=== PATIENT | male | born 1980 | race Caucasian/White ===

== ENCOUNTER 2018-04-17 08:52 | Emergency (ER) | payer OTHER ==
[~2018-04-17] VITALS: Wt 72.5 kg
[2018-04-17 09:56] LABS: EOS # 0.1 (0.04-0.40); EOS % 1.8 % (0.0-4.0); HEMATOCRIT 39.5 % (42.0-52.0); HEMOGLOBIN 13.8 g/dL (13.5-18.0); LYMPH# 0.9 (1.50-4.00); MEAN CELL VOLUME 90 fl (78-100); MEAN CORPUSCULAR HEMOGLOBIN 32 pg (27-31); MEAN CORPUSCULAR HGB CONC 35 g/dL (33-37); MEAN PLATELET VOLUME 11.7 fl (7.4-10.4); MONO # 0.4 (0.20-0.80); NEU # 5.6 (1.40-6.50); PLATELET COUNT 153 K/mm3 (130-400); RED BLOOD COUNT 4.37 M/mm3 (4.20-5.60); WHITE BLOOD COUNT 7.1 K/mm3 (4.8-10.8)
[2018-04-17 10:09] LABS: ALBUMIN 4.1 g/dL (3.5-5.0); CALCIUM 9.2 mg/dL (8.4-10.2); POTASSIUM 4.2 mmol/L (3.6-5.0); TOTAL BILIRUBIN 0.7 mg/dL (0.2-1.3); TOTAL PROTEIN 6.5 g/dL (6.3-8.2)
[2018-04-17 11:37] LABS: URINE APPEARANCE CLEAR; URINE BILIRUBIN NEGATIVE (NEGATIVE); URINE BLOOD NEGATIVE (NEGATIVE); URINE COLOR YELLOW; URINE GLUCOSE NEGATIVE (NEGATIVE); URINE KETONE NEGATIVE (NEGATIVE); URINE LEUKOCYTE ESTERASE NEGATIVE (NEGATIVE); URINE MUCUS PRESENT (NOT PRESENT); URINE NITRATE NEGATIVE (NEGATIVE); URINE PROTEIN(semi-quant) 1+ mg/dL (NEGATIVE); URINE UROBILINOGEN NORMAL (NORMAL)
[2018-04-17] MEDS ORDERED: AUGMENTIN 875-1 EAC1 PO (11:48)
[2018-04-17] MEDS ORDERED: NORCO 325 MG-51 TA1 PO (11:48)
[2018-04-17 12:09] VITALS: BP 134/85
== END 2018-04-17 11:52 | disposition home or self-care (01) ==
LOC: ED 08:52
PROVIDERS: Nurse Practitioner
DX: J01.90 Acute sinusitis, unspecified (principal); R55 Syncope and collapse; S01.81XA Laceration without foreign body of other part of head, initial encounter; S00.412A Abrasion of left ear, initial encounter; S09.90XA Unspecified injury of head, initial encounter; S19.9XXA Unspecified injury of neck, initial encounter; Z23 Encounter for immunization; W18.30XA Fall on same level, unspecified, initial encounter; Z88.2 Allergy status to sulfonamides; F17.210 Nicotine dependence, cigarettes, uncomplicated
CPT/HCPCS: 90715; J1885; J2405; J3010; J7030; Q9967

== ENCOUNTER 2018-04-24 12:59 | Emergency (ER) | payer OTHER ==
[~2018-04-24 12:59] MED LIST: AUGMENTIN 875-1 EAC1 PO; NORCO 325 MG-51 TA1 PO
[2018-04-24 13:15] VITALS: BP 121/89
== END 2018-04-24 13:06 | disposition home or self-care (01) ==
LOC: ED 12:59
DX: Z48.02 Encounter for removal of sutures (principal)

== ENCOUNTER 2023-09-15 10:05 | Emergency (ER) | payer OTHER ==
[~2023-09-15] VITALS: Ht 172.7 cm; Wt 76.4 kg
[2023-09-15] MEDS ORDERED: TOPCARE OMEPRAZ20 MG PO (10:15)
[2023-09-15] MEDS ORDERED: Ketorolac 30 MG/ML VIAL IM ONE (10:30)
[2023-09-15] MEDS ORDERED: CEPHALEXIN500 M1 PO (11:57)
[2023-09-15] MEDS ORDERED: NORCO 325 MG-51 TA1 PO (11:57)
[2023-09-15 12:28] VITALS: BP 119/83
== END 2023-09-15 12:00 | disposition home or self-care (01) ==
LOC: ED 10:05
DX: S61.216A Laceration without foreign body of right little finger without damage to nail, initial encounter (principal); Z23 Encounter for immunization; Z88.2 Allergy status to sulfonamides; W27.0XXA Contact with workbench tool, initial encounter
CPT/HCPCS: 90715; J1885

== ENCOUNTER → 2024-04-14 | Day surgery (SDC) | payer OTHER ==
[~2024-04-14] MED LIST changes: +CEPHALEXIN500 M1 PO; +TOPCARE OMEPRAZ20 MG PO; +fentaNYL 100 MCG/2 ML VIAL ONE
== END | disposition home or self-care (01) ==
LOC: MSO 07:24
DX: Z12.11 Encounter for screening for malignant neoplasm of colon (principal); D12.0 Benign neoplasm of cecum; F17.210 Nicotine dependence, cigarettes, uncomplicated
CPT/HCPCS: 00812; J2704; J3010; J7120